=== PATIENT | female | born 1965 | race African-American/Black ===

== ENCOUNTER 2023-07-11 11:21 | Emergency (ER) | payer MEDICARE, MEDICAID ==
[~2023-07-11] VITALS: Ht 167.6 cm; Wt 79.0 kg
[2023-07-11 11:40] VITALS: O2SAT 98
[2023-07-11] MEDS ORDERED: IBUP-2029 MT (13:50)
[2023-07-11] MEDS: LIDOCAINE 5% PATCH TOP SCH (14:00)
[2023-07-11] MEDS ORDERED: LIDO700A15 TP (14:38)
[2023-07-11 14:47] VITALS: BP 146/89; PULSE 84; RESP 20; TEMP 97.9
== END 2023-07-11 14:50 | disposition home or self-care (01) ==
LOC: ER 11:21
DX: M79.10 Myalgia, unspecified site (principal); I10 Essential (primary) hypertension; V49.59XA Passenger injured in collision with other motor vehicles in traffic accident, initial encounter; Y93.89 Activity, other specified; Y92.89 Other specified places as the place of occurrence of the external cause; Y99.8 Other external cause status
CPT/HCPCS: 81025; 99283